=== PATIENT | female | born 1975 | race Caucasian/White ===

== ENCOUNTER 2020-12-23 20:48 | Emergency (ER) | payer MEDICAID ==
[~2020-12-23] VITALS: Ht 144.8 cm; Wt 104.3 kg
[2020-12-23] MEDS ORDERED: DESYREL150 MG PO (20:52)
[2020-12-23] MEDS ORDERED: NEURONTIN300 MG PO (20:52)
[2020-12-23] MEDS ORDERED: HYDROCODON-ACE1 EAC8 PO (21:57)
[2020-12-23 22:18] VITALS: BP 138/74
== END 2020-12-23 22:18 | disposition home or self-care (01) ==
LOC: M.ERS 20:48
DX: M25.462 Effusion, left knee (principal); M17.12 Unilateral primary osteoarthritis, left knee; M79.7 Fibromyalgia; J45.909 Unspecified asthma, uncomplicated; Z88.6 Allergy status to analgesic agent; Z98.890 Other specified postprocedural states; X50.1XXA Overexertion from prolonged static or awkward postures, initial encounter; Y93.89 Activity, other specified; Y92.89 Other specified places as the place of occurrence of the external cause; Y99.9 Unspecified external cause status